=== PATIENT | female | born 1995 | race Caucasian/White ===

== ENCOUNTER 2024-03-05 14:00 | Emergency (ER) | payer MEDICAID, OTHER ==
[~2024-03-05] VITALS: Ht 175.3 cm; Wt 59.9 kg
[2024-03-05 14:05] VITALS: BP 107/71; TEMP 98.2
[2024-03-05] MEDS ORDERED: CYCLOBENZAPRINE 10 MG TABLET ONE (14:35)
[2024-03-05] MEDS ORDERED: IBUPROFEN 600 MG TABLET ONE (14:35)
[2024-03-05] MEDS: CYCLOBENZAPRINE 10 MG TABLET PO ONE (14:37)
[2024-03-05] MEDS: IBUPROFEN 600 MG TABLET PO ONE (14:38)
[2024-03-05] MEDS ORDERED: CYCL5TAB PO (14:56)
[2024-03-05 15:33] VITALS: O2SAT 99
== END 2024-03-05 15:34 | disposition home or self-care (01) ==
LOC: ER 14:02
DX: M54.50 Low back pain, unspecified (principal); Z55.6 Problems related to health literacy